=== PATIENT | female | born 1985 | race Caucasian/White ===

== ENCOUNTER 2017-11-09 06:39 | Day surgery (SDC) | payer MEDICAID ==
[~2017-11-09] VITALS: Ht 160 cm; Wt 66.7 kg
[2017-11-09] MEDS ORDERED: BUPIVACAINE HCL/EPINEPHRINE/PF 0.5%/0.0005 10ML ONE (07:05)
[2017-11-09] MEDS ORDERED: BACITRACIN ZINC 15GM TUBE TOP ONE (07:05)
[2017-11-09] MEDS ORDERED: LACTATED RINGERS 1,000 ML IV SCH (07:30)
[2017-11-09 07:40] LABS: UCG SCREEN NEGATIVE
[2017-11-09] MEDS ORDERED: MIDAZOLAM HCL 2 MG/2 ML VIAL ONE (08:01)
[2017-11-09] MEDS ORDERED: PROPOFOL 200MG/20ML VIAL IV ONE (08:01)
[2017-11-09] MEDS ORDERED: FENTANYL CITRATE/PF 50MCG/ML 2ML VIAL ONE (08:01)
[2017-11-09] MEDS ORDERED: PROPOFOL 10MG/ML 100ML 100 ML IV ONE (08:19)
[2017-11-09] MEDS ORDERED: ONDANSETRON HCL 4MG/2ML VIAL ONE (08:55)
[2017-11-09] MEDS ORDERED: DEXAMETHASONE 4MG/ML 1ML VIAL ONE (08:56)
[2017-11-09] MEDS ORDERED: MEPERIDINE HCL/PF 25MG/ML CPJ IV PRN (09:45)
[2017-11-09] MEDS ORDERED: ONDANSETRON HCL 4MG/2ML VIAL IV NR (09:45)
[2017-11-09] MEDS ORDERED: HYDROMORPHONE HCL/PF 2MG/ML CPJ IV PRN (09:45)
[2017-11-09] MEDS ORDERED: FENTANYL CITRATE/PF 50MCG/ML 2ML VIAL IV PRN (09:45)
== END 2017-11-09 11:05 | disposition home or self-care (01) ==
LOC: OR 06:39
PROVIDERS: ATTEND Surgery
DX: K64.8 Other hemorrhoids (principal); K64.4 Residual hemorrhoidal skin tags; Z87.19 Personal history of other diseases of the digestive system; Z98.890 Other specified postprocedural states
CPT/HCPCS: 46260; 81025; 88304; J0171; J1100; J2250; J2405; J2704; J3010; J7120